=== PATIENT | male | born 1930 | race Caucasian/White ===

== ENCOUNTER 2021-05-15 12:47 | Inpatient (IN) | payer BC ==
[~2021-05-15] VITALS: Ht 172.7 cm; Wt 62.6 kg
[2021-05-15] MEDS ORDERED: HYDROMORPHONE 1 MG/1 ML DISP.SYRIN IV ONE (13:15)
[2021-05-15] MEDS ORDERED: ONDANSETRON 4 MG/2 ML VIAL IV ONE (13:15)
[2021-05-15] MEDS ORDERED: IV NORMAL SALINE 1000 ML BAG IV ONE (13:15)
[2021-05-15] MEDS ORDERED: ONDANSETRON 4 MG/2 ML VIAL ONE (13:34)
[2021-05-15] MEDS ORDERED: HYDROMORPHONE 1 MG/1 ML DISP.SYRIN ONE (13:34)
[2021-05-15 13:42] LABS: CREATININE 0.7 mg/dL (0.6-1.3)
[2021-05-15 13:54] LABS: BILIRUBIN,DIRECT 0.2 mg/dL (0.0-0.2); BILIRUBIN,TOTAL 0.7 mg/dL (0.2-1.0); TOTAL PROTEIN, SERUM 7.6 g/dL (6.4-8.2)
[2021-05-15 13:58] LABS: HEMATOCRIT 38.5 % (36.7-47.1); MEAN CORPUSCULAR HEMOGLOBIN 29.1 uug (23.8-33.4); MEAN CORPUSCULAR VOLUME 86.2 fL (73.0-96.2); PLATELET COUNT (AUTO) 225 K/uL (152-348)
--- NOTE | 2021-05-15 15:11 | NUR ---
brought down for CT via [place] accompanied by tech. garcía, ASLEEP but rousable
--- NOTE | 2021-05-15 17:34 | NUR ---
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
--- NOTE | 2021-05-15 18:56 | NUR ---
pending COVID results pending insurance clearance for admission pending bed availability
--- NOTE | 2021-05-15 19:25 | NUR ---
Recieved thorough report from [facility] using SBAR method. Pt is stable, VSS, PE WNL. HR:98, SaO2:96%RA. A.fib (controled) on bedside monitor with occ PVCs. Pt denies any pain, sob, dizziness, n/v. No s/sx of distress noted. Nothing pending except covid results, insurance eligability, and then finally admission and room assignment. Will try to expodite as much as possible to transfer pt upstairs.
--- NOTE | 2021-05-15 20:20 | NUR ---
There is some confusion regarding pt dx. 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 He has made comments that seems to suggest that we are still ruling out CA, but that it is still undetermined if it is indeed CA or not. Pt states that no MD has spoken with him regarding any findings. So either I recieved a dx in error or the PMD, the Onco and the EDMD have failed to follow up and inform the pt exactly why he is being admitted.
--- NOTE | 2021-05-16 02:51 | NUR ---
Called [facility] to page Nidhi Motley NP.
--- NOTE | 2021-05-16 03:15 | NUR ---
Dr. Isabel on panel call with Nidhi Motley NP.
--- NOTE | 2021-05-16 04:14 | NUR ---
In with pt, checked VS, assessed pt, premedicated for pain 7/10 in the neck, then provided pericare and changed diaper, gown and linens. Pt is clean and dry and placed in pos of comfort. All needs met. Pt AAOx4.
[2021-05-16] MEDS ORDERED: HYDROMORPHONE 1 MG/1 ML DISP.SYRIN IV ONE (04:15)
[2021-05-16] MEDS ORDERED: ONDANSETRON 4 MG/2 ML VIAL IV ONE (04:15)
[2021-05-16] MEDS ORDERED: HYDROMORPHONE 1 MG/1 ML DISP.SYRIN ONE ×2 (04:28→14:03)
[2021-05-16] MEDS ORDERED: ONDANSETRON 4 MG/2 ML VIAL ONE (04:29)
--- NOTE | 2021-05-16 05:00 | NUR ---
Pt given two cups of OJ per pt request. Pt clean and dry and in pos of comfort. It was at this time that I initiated End-of-life decision-making process where we discussed several possible outcomes and courses of action for him to take regarding determining appropriate code status for his guarded prognosis. I suggested that it would behoove him and his family to really start discussing what they would like to have happen in the instance where he stops breathing or his heart stops beat. I recommended that usually the best coarse of action or plan is that which is based on consideration and compassion for all parties involved but especially the pt. It is always best to consider the most compassionate plan for people tend to get very selfish during this time and stop taking into account how an inappropriate code status can effect the whole family. He was receptive to what i was saying and was listening carefully. I gave examples of what happened with my own grandmother when some members of the family were too selfish to realize that what they wanted was essentially to prolong her suffering and misery, which wrong for obvious reasons. I acknowledged that this is very difficulty but it is something that if crucially important for him and his loved ones to get very clear now when he still can and not wait until it is too late.
[2021-05-16] MEDS ORDERED: MAGNESIUM HYDROXIDE 30 ML LIQUID UDC PO PRN (05:15)
[2021-05-16] MEDS ORDERED: Z GUARD REMEDY PASTE 57 GM TUBE TOP PRN (05:15)
[2021-05-16] MEDS ORDERED: ONDANSETRON 4 MG/2 ML VIAL IV PRN (05:15)
[2021-05-16] MEDS ORDERED: ACETAMINOPHEN 325 MG TABLET PO PRN (05:15)
--- NOTE | 2021-05-16 05:24 | NUR ---
TEXTED DR. BLACKMON FOR MRI APPROVAL/ TEXTED BUSINESS INTELLIGENCE ADMINISTRATOR MARTY THE REQUISTION , WHEN APPROVED I WILL CALL [facility] AND BUSINESS INTELLIGENCE ADMINISTRATOR
[2021-05-16 06:05] LABS: MEAN CORPUSCULAR HEMOGLOBIN 28.6 uug (23.8-33.4); MEAN CORPUSCULAR VOLUME 85.8 fL (73.0-96.2); PLATELET COUNT (AUTO) 213 K/uL (152-348)
[2021-05-16 06:14] LABS: CREATININE 0.6 mg/dL (0.6-1.3); POTASSIUM 3.6 mmol/L (3.5-5.1)
--- NOTE | 2021-05-16 07:30 | NUR ---
Pt is awake a/o x4, No c/o neck pain at this time.
[2021-05-16] MEDS ORDERED: ENOXAPARIN SODIUM 40 MG/0.4 ML DISP.SYRIN SQ ONE (08:26)
[2021-05-16] MEDS: HYDROCODONE/APAP 5-325MG TABLET PO PRN (08:45)
[2021-05-16] MEDS ORDERED: HYDROCODONE/APAP 5-325MG TABLET ONE (08:48)
[2021-05-16] MEDS ORDERED: ENOXAPARIN SODIUM 40 MG/0.4 ML DISP.SYRIN SQ SCH (09:00)
--- NOTE | 2021-05-16 09:40 | NUR ---
Dr Hermosillo at the bedside for cardio consult.
[2021-05-16] MEDS: CLOPIDOGREL 75 MG TABLET PO SCH (10:24)
[2021-05-16] MEDS ORDERED: CLOPIDOGREL 75 MG TABLET ONE (10:27)
--- NOTE | 2021-05-16 12:37 | NUR ---
Spoke to Pt and pt's regarding MRI. Pt states in 1959's he had multiple fusion surgeories and they had placed many metal wires in/around the spine. Dr camara made aware.
--- NOTE | 2021-05-16 12:40 | NUR ---
Per pt's , pt was in [facility] many times and they maybe able to tell us if pt had MRI there. Placed a call to [facility], but medical records are closed until Mon am. Pt's states she will bring info which may show if pt had previous MRIs. Dr Medina and LABORER WHARF are aware.
[2021-05-16] MEDS: HYDROMORPHONE 1 MG/1 ML DISP.SYRIN IV PRN (13:58)
[2021-05-16] MEDS ORDERED: METO25TA6 PO (16:19)
[2021-05-16] MEDS ORDERED: CLOP75TA15 PO (16:19)
[2021-05-16] MEDS ORDERED: VALS80TA2 PO (16:19)
[2021-05-16] MEDS ORDERED: APIX2.5T PO (16:19)
[2021-05-16] MEDS ORDERED: METOPROLOL TARTRATE 50 MG TABLET ONE (17:08)
[2021-05-16] MEDS: METOPROLOL TARTRATE 25 MG TABLET PO SCH (17:20)
--- NOTE | 2021-05-16 18:49 | NUR ---
Dinner tray provided and pt's help w/ feeding. Pt states his neck pain is tolorateable as long as not moving.
--- NOTE | 2021-05-16 19:20 | NUR ---
Hands off report given to Donnell LOPEZ.
--- NOTE | 2021-05-16 19:38 | NUR ---
received pt, pt's at bedside. pt calm resting at this time.
--- NOTE | 2021-05-16 20:22 | NUR ---
report given to Clair LOPEZ.
--- NOTE | 2021-05-16 20:50 | NUR ---
pt transported to m/s unit [facility] via [facility]. Cole RUTLEDGE transported pt with all belongings.
--- NOTE | 2021-05-16 20:55 | NUR ---
[place]. Alert and oriented x 4. On 2L NC saturating at 97%. No signs of acute distress. L FA IV intact. On bedrest. Able to state needs. Call lights within reach, safety measures initiated.
[2021-05-16 21:20] VITALS: BP 159/92
[2021-05-16] MEDS: APIXABAN 2.5 MG TABLET PO SCH (23:10)
[2021-05-17] MEDS: HYDROMORPHONE 1 MG/1 ML DISP.SYRIN IV PRN ×3 (03:58→20:49)
[2021-05-17 04:21] VITALS: BP 130/87
--- NOTE | 2021-05-17 06:52 | NUR ---
Slept intermittently throughout the night. On 2L NC saturating at 97%. Is anxious at times c/o neck pain. Dilaudid 1mg IVP given for pain 01/15. Effective. Compliant with medication and care. L FA saline flushed and heplock. Call lights within reach, safety measures maintained. Admission packed completed. Will endorse to am shift.
[2021-05-17 06:56] LABS: HEMATOCRIT 34.9 % (36.7-47.1); MEAN CORPUSCULAR HEMOGLOBIN 28.9 uug (23.8-33.4); MEAN CORPUSCULAR VOLUME 85.7 fL (73.0-96.2); PLATELET COUNT (AUTO) 218 K/uL (152-348)
[2021-05-17 07:10] LABS: CREATININE 0.7 mg/dL (0.6-1.3); MAGNESIUM 1.9 mg/dL (1.8-2.4); PHOSPHOROUS 3.6 mg/dL (2.5-4.9); POTASSIUM 3.8 mmol/L (3.5-5.1)
[2021-05-17] MEDS: APIXABAN 2.5 MG TABLET PO SCH ×2 (09:23→20:48)
[2021-05-17] MEDS: VALSARTAN 80 MG TABLET PO SCH (09:23)
[2021-05-17] MEDS: CLOPIDOGREL 75 MG TABLET PO SCH (09:23)
[2021-05-17] MEDS: METOPROLOL TARTRATE 25 MG TABLET PO SCH ×2 (09:24→18:44)
[2021-05-17 12:00] VITALS: BP 120/62
--- NOTE | 2021-05-17 13:00 | NUR ---
Medical Release Request was sent to [facility] and [facility] medical records. Received fax confirmation.
[2021-05-17 16:00] VITALS: BP 112/69
[2021-05-17 16:24] LABS: *BILIRUBIN,URIN NEGATIVE (NEGATIVE); *BLOOD, URINE NEGATIVE (NEGATIVE); *CLARITY,URINE CLEAR (CLEAR); *COLOR,URINE YELLOW (YELLOW); LEUKOCYTE ESTERASE ,URINE NEGATIVE (NEGATIVE); NITRITE, URINE NEGATIVE (NEGATIVE); PH,URINE 5.5 (5.0-8.0); UGLUCOSE NEGATIVE (NEGATIVE)
[2021-05-17 16:30] LABS: *KETONES,URINE TRACE (NEGATIVE)
[2021-05-17 16:31] LABS: BACTERIA,URINE NONE SEEN /HPF (NONE SEEN); MUCUS,URINE FEW /LPF (0-FEW); RBC,URINE 0-3 /HPF (0-3); SQUAMOUS EPITHELIAL CELL,UR NONE SEEN /HPF (NONE SEEN); WBC,URINE 0-3 /HPF (0-3)
[2021-05-17] MEDS ORDERED: APIXABAN 2.5 MG TABLET PO SCH (17:00)
--- NOTE | 2021-05-17 18:08 | NUR ---
Patient comfortable t/o shift. C/O pain in the neck, PRN pain medication given with stated relief. On 2L NC saturating at 97%. is at bedside. No BM during this shift. All meds given as ordered, all needs met. Safety and comfort measures maintained t/o shift.
--- NOTE | 2021-05-17 19:30 | NUR ---
Patient is alert and oriented x4, able to make needs known. on 2L/ min via NC. Denies any SOB. Left FA IV is patent and intact. Still complains of pain to neck. Patient has severe pain and tenses and grimaces from any movement. Dilaudid offered and accepted. Patient is incontinent of bladder, urinal at bedside. Safety measures initiated. Call light within reach.
[2021-05-17 20:00] VITALS: BP 124/72
[2021-05-17 22:19] LABS: LYMPHOCYTES % (MANUAL) 18 % (20-40); MONOCYTES % (MANUAL) 14 % (2-10); NEUTROPHILS % (MANUAL) 68 % (42-75)
[2021-05-18] MEDS: HYDROMORPHONE 1 MG/1 ML DISP.SYRIN IV PRN ×2 (01:50→09:05)
[2021-05-18 04:00] VITALS: BP 136/73
[2021-05-18 06:44] LABS: HEMATOCRIT 36.9 % (36.7-47.1); MEAN CORPUSCULAR HEMOGLOBIN 28.8 uug (23.8-33.4); MEAN CORPUSCULAR VOLUME 85.1 fL (73.0-96.2); PLATELET COUNT (AUTO) 229 K/uL (152-348)
--- NOTE | 2021-05-18 06:49 | NUR ---
Patient slept well. Noted to attempt to get out of bed 3 times, reoriented and toileting offered. No significant events this shift. In no respiratory distress. Safety measures continued. Call light within reach.
[2021-05-18 07:01] LABS: CREATININE 0.6 mg/dL (0.6-1.3); MAGNESIUM 1.8 mg/dL (1.8-2.4); PHOSPHOROUS 3.2 mg/dL (2.5-4.9); POTASSIUM 3.9 mmol/L (3.5-5.1)
[2021-05-18 07:02] LABS: NEUTROPHILS % (MANUAL) 0 % (42-75)
[2021-05-18] MEDS: METOPROLOL TARTRATE 25 MG TABLET PO SCH ×2 (08:36→17:22)
[2021-05-18] MEDS: VALSARTAN 80 MG TABLET PO SCH (08:36)
[2021-05-18] MEDS: APIXABAN 2.5 MG TABLET PO SCH ×2 (08:37→21:04)
[2021-05-18] MEDS: CLOPIDOGREL 75 MG TABLET PO SCH (08:38)
[2021-05-18] MEDS ORDERED: CLOPIDOGREL 75 MG TABLET PO SCH (09:00)
--- NOTE | 2021-05-18 09:05 | NUR ---
awake, alert, able to let his needs known, repositioned and c/o of neck pain-medicated with Dilaudid 1 mg iv as prn. breakfast served, 02 at 2l/nc sat at 99%, noted some cough productive of whitish phlegm , looks weak, safety measures maintained, call light within reach
--- NOTE | 2021-05-18 11:25 | NUR ---
seen by Lucas Canales, spoke to - with orders- placed on isolation
[2021-05-18 12:00] VITALS: BP 134/74
--- NOTE | 2021-05-18 12:30 | NUR ---
swabs for rapid flu, pcr and rapid test for covid done and sent to lab, on droplet isolation till results in
--- NOTE | 2021-05-18 14:03 | NUR ---
lab called with positive covid antigen- relayed results to Jerilyn Canales NP
[2021-05-18 16:00] VITALS: BP 143/76
[2021-05-18] MEDS: DEXAMETHASONE SOD PHOSPHATE 4 MG INJ IV SCH (19:21)
--- NOTE | 2021-05-18 19:30 | NUR ---
report given to next shift-no distress noted, all needs attended and met, call light within reach
[2021-05-18 20:00] VITALS: BP 115/84
--- NOTE | 2021-05-18 22:00 | NUR ---
Pt had fever 102.8F tylenol given and cooling measures done; referred to DR Espinal with orders for clinda and zithromycin and xray in AM; pt is afebrile at this time at 99F;
[2021-05-18] MEDS ORDERED: AZITHROMYCIN 500MG/ D5W 250ML IVPB **ER PYXIS ONLY IV ONE (23:28)
[2021-05-18] MEDS ORDERED: CEFTRIAXONE /D5W 50ML IVPB **ER PYXIS IV ONE (23:29)
[2021-05-18] MEDS: CEFTRIAXONE 1 G in IV DEXTROSE 5% 50 ML IV SCH (23:38)
[2021-05-19] MEDS: AZITHROMYCIN IV 500 MG in IV DEXTROSE 5% 250 ML IV SCH (00:45)
[2021-05-19 04:00] VITALS: BP 130/56
[2021-05-19] MEDS: HYDROCODONE/APAP 5-325MG TABLET PO PRN ×2 (06:46→12:51)
[2021-05-19 06:50] LABS: HEMATOCRIT 36.8 % (36.7-47.1); MEAN CORPUSCULAR HEMOGLOBIN 28.3 uug (23.8-33.4); PLATELET COUNT (AUTO) 208 K/uL (152-348)
[2021-05-19 07:11] LABS: CREATININE 0.7 mg/dL (0.6-1.3); MAGNESIUM 1.8 mg/dL (1.8-2.4); POTASSIUM 3.6 mmol/L (3.5-5.1)
[2021-05-19] MEDS: DEXAMETHASONE SOD PHOSPHATE 4 MG INJ IV SCH (08:10)
[2021-05-19] MEDS: CLOPIDOGREL 75 MG TABLET PO SCH (08:12)
[2021-05-19] MEDS: APIXABAN 2.5 MG TABLET PO SCH ×2 (08:12→21:28)
[2021-05-19] MEDS: METOPROLOL TARTRATE 25 MG TABLET PO SCH ×2 (08:22→17:45)
[2021-05-19] MEDS: VALSARTAN 80 MG TABLET PO SCH (08:23)
--- NOTE | 2021-05-19 08:46 | NUR ---
morning b/p medication held bp: 95/54
[2021-05-19 12:00] VITALS: BP 103/65
--- NOTE | 2021-05-19 14:20 | NUR ---
PATIENT WAS TAKEN TO MRI OF C-SPINE, PICKED UP MY AMBULANCE AT 1420.
[2021-05-19] MEDS ORDERED: GADOTERATE MEGLUMINE 10 MMOL/20 ML VIAL IV ONE (16:32)
--- NOTE | 2021-05-19 17:12 | NUR ---
PATIENT RETURNED FROM MRI IN STABLE CONDITION. V/S WNL. PATIENT RETURNED TO [facility] ISOLATION ROOM, ALL PRECAUTIONS TAKEN BY STAFF.
[2021-05-19] MEDS ORDERED: IPRATROPIUM/ALBUTEROL SULFATE 14.7 GM INHALER INH PRN (17:45)
--- NOTE | 2021-05-19 19:10 | NUR ---
Received patient lying in bed. AAOX4. Able to make needs known. IV on L AC patent and intact. On 2L O2 via NC saturating at 94%. Patient denies SOB, chest pain or dizziness. Safety measures initiated. Bed in locked, call light button and frequently used items within reach. Will continue to monitor.
[2021-05-19 20:00] VITALS: BP 101/59
[2021-05-19] MEDS ORDERED: REMDESIVIR (CHARGED) 200 MG in IV NORMAL SALINE 210 ML IV ONE (20:00)
[2021-05-20] VITALS: BP 119/77
[2021-05-20] MEDS: CEFTRIAXONE 1 G in IV DEXTROSE 5% 50 ML IV SCH ×2 (00:17→22:28)
[2021-05-20] MEDS: HYDROCODONE/APAP 5-325MG TABLET PO PRN (01:03)
[2021-05-20] MEDS: AZITHROMYCIN IV 500 MG in IV DEXTROSE 5% 250 ML IV SCH (01:11)
--- NOTE | 2021-05-20 01:30 | NUR ---
Patient complained of having chest tightness, advised patient it's common S/E of remdesivir. Advised patient to do deep breathing to reduce pain, however, he claims that pain was persistent. Gave pt, Dione, as ordered. Pt tolerated medication well. Will continue to monitor.
[2021-05-20 05:35] VITALS: BP 116/76
--- NOTE | 2021-05-20 06:15 | NUR ---
Patient slept intermittently through the night. Patient denies SOB, chest pain or dizziness at this time. On 2L O2 via NC, saturating at. IV on L FA and R FA both intact and patent. Compliant with medications given. All needs attended to and met. Safety precautions maintained. Will endorse to day shift. Addendum: 05/20/21 at 0616 by ALEXSANDER HILLIARD RN Patient on 2L O2 saturating at 94%.
[2021-05-20 06:43] LABS: HEMATOCRIT 36.5 % (36.7-47.1); MEAN CORPUSCULAR HEMOGLOBIN 28.3 uug (23.8-33.4); MEAN CORPUSCULAR VOLUME 84.4 fL (73.0-96.2); PLATELET COUNT (AUTO) 204 K/uL (152-348)
[2021-05-20 07:05] LABS: BILIRUBIN,DIRECT 0.2 mg/dL (0.0-0.2); BILIRUBIN,TOTAL 0.3 mg/dL (0.2-1.0); CREATININE 0.8 mg/dL (0.6-1.3); POTASSIUM 3.8 mmol/L (3.5-5.1); TOTAL PROTEIN, SERUM 6.7 g/dL (6.4-8.2)
[2021-05-20 09:00] VITALS: BP 104/65
[2021-05-20] MEDS: METOPROLOL TARTRATE 25 MG TABLET PO SCH ×2 (09:00→17:40)
[2021-05-20] MEDS: DEXAMETHASONE SOD PHOSPHATE 4 MG INJ IV SCH (10:24)
[2021-05-20] MEDS: APIXABAN 2.5 MG TABLET PO SCH ×2 (10:24→21:18)
[2021-05-20] MEDS: CLOPIDOGREL 75 MG TABLET PO SCH (10:25)
[2021-05-20] MEDS: HYDROMORPHONE 1 MG/1 ML DISP.SYRIN IV PRN ×4 (11:05→23:38)
[2021-05-20 12:00] VITALS: BP 100/61
--- NOTE | 2021-05-20 12:52 | NUR ---
Pt is a/o x 4, saturating 96% on 2L nasal cannula. Pt complains of pain in neck, administered PRN medication. Pt tolerated physical therapy. dropped off home medication, transferred it to pharmacy for evaluation. Pt is cooperative with care and medications, comfort measures provided, call light within reach, will continue to monitor.
[2021-05-20] MEDS: ENSURE ENLIVE (VAN) 240 ML LIQUID PO SCH ×2 (13:04→17:40)
[2021-05-20] MEDS ORDERED: IV 1/2NS 1000 ML 1,000 ML IV ONE (13:15)
--- NOTE | 2021-05-20 15:05 | NUR ---
PATIENT IS SCHEDULED FOR MRI L SPINE W CONTRAST TOMORROW 05/21/2020 AT 9.30AM, NURSE KACY IS AWARE AN SHE IS ARRANGING TRANSPORTATION.
[2021-05-20 16:00] VITALS: BP 130/85
[2021-05-20] MEDS ORDERED: EVOL140P3 SQ (16:11)
[2021-05-20] MEDS ORDERED: [UNRECOGNIZED DRUG - OTHER] SQ SCH (18:00)
[2021-05-20] MEDS ORDERED: REPATHA 140 MG SQ SCH (18:00)
--- NOTE | 2021-05-20 18:51 | NUR ---
MRI of LSpine with contrast consent signed by patient. Procedure to be done tomorrow 05/21/21 at 0930, cloth picker scheduled for 08 by [facility] ambulance.
[2021-05-20 20:00] VITALS: BP 119/74
[2021-05-20] MEDS: AZITHROMYCIN 250 MG TABLET PO SCH (21:05)
[2021-05-20] MEDS: REMDESIVIR (CHARGED) 100 MG in IV NORMAL SALINE 100 ML IV SCH (21:06)
[2021-05-21] MEDS: HYDROCODONE/APAP 5-325MG TABLET PO PRN (02:28)
[2021-05-21 04:00] VITALS: BP 151/70
[2021-05-21] MEDS: HYDROMORPHONE 1 MG/1 ML DISP.SYRIN IV PRN (04:26)
--- NOTE | 2021-05-21 06:03 | NUR ---
Pt slept intermittently through the night. Denies any acute distress noted at this time. Pain managed well. Vitals stable on 2L NC tolerating well. PIVS on RFA and LAC intact. Comfort care and needs attended. Safety measures in place. Isolation precaution maintained. Will continue with the plan of geoffrey.
[2021-05-21 08:42] LABS: HEMATOCRIT 33.9 % (36.7-47.1); MEAN CORPUSCULAR HEMOGLOBIN 28.3 uug (23.8-33.4); MEAN CORPUSCULAR VOLUME 84.4 fL (73.0-96.2); PLATELET COUNT (AUTO) 189 K/uL (152-348)
[2021-05-21] MEDS: APIXABAN 2.5 MG TABLET PO SCH ×2 (08:44→21:15)
[2021-05-21] MEDS: CLOPIDOGREL 75 MG TABLET PO SCH (08:44)
[2021-05-21] MEDS: DEXAMETHASONE SOD PHOSPHATE 4 MG INJ IV SCH (08:44)
[2021-05-21] MEDS: METOPROLOL TARTRATE 25 MG TABLET PO SCH ×2 (08:57→16:35)
[2021-05-21] MEDS: ENSURE ENLIVE (VAN) 240 ML LIQUID PO SCH ×3 (08:58→16:35)
--- NOTE | 2021-05-21 09:00 | NUR ---
Patient picked up ambulance for MRI of Lumbar spine with & without contrast, transferred via gurney. He is alert, oriented x 4, not in any form of distress, on 2LPM oxygen via NC. He denies any pain or discomfort at this time. Vital signs stable.
[2021-05-21 09:16] LABS: BILIRUBIN,DIRECT 0.1 mg/dL (0.0-0.2); BILIRUBIN,TOTAL 0.2 mg/dL (0.2-1.0); CREATININE 0.7 mg/dL (0.6-1.3); MAGNESIUM 2.2 mg/dL (1.8-2.4); TOTAL PROTEIN, SERUM 6.5 g/dL (6.4-8.2)
--- NOTE | 2021-05-21 10:45 | NUR ---
Patient back from MRI. He remains alert, oriented x 4,on oxygen 2LPM via NC. No complain of any pain or discomfort.
[2021-05-21 11:56] VITALS: BP 115/66
[2021-05-21 15:56] VITALS: BP 122/69
--- NOTE | 2021-05-21 16:00 | NUR ---
Noted that patient took off his oxygen with no complain of dyspnea. Assisted patient to the bathroom with walker on room air. He denies any discomfort. Checked O2 sat 95% on room air.
[2021-05-21 20:53] VITALS: BP 102/75
--- NOTE | 2021-05-21 21:00 | NUR ---
PATIENT ALERT BUT FORGETFUL, NO SOB NO CHEST PAIN, PATIENT REPORTED THAT HE HAS PROBLEM WITH CONSTIPATION, AND WANTED MORE LAXATIVE TO PREVENT CONSTIPATION, PATIENT WAS GIVEN MOM BY AM RN, EXPLAINED TO PATIENT THAT WE NEED TO WAIT IN MORNING CAUSE MOM WORKS OVERNIGHT, AND HE AT RISK FOR DIARRHEA IF WANTED MORE LAXATIVE AND ACCORDING TO REPORT PATIENT HAD 2 BOWEL MOVEMENT PREVIOUS DAYS. PATIENT ABLE TO FOLLOW, ASSIST WITH TOILETING, PATIENT ON DROPLET PRECAUTION FOR COVID DIAGNOSIS, PATIENT HAS NO COUGH, NO FEVER, ON ROOM AIR, CONT TO MONITOR.
[2021-05-21] MEDS: REMDESIVIR (CHARGED) 100 MG in IV NORMAL SALINE 100 ML IV SCH (21:11)
[2021-05-21] MEDS: AZITHROMYCIN 250 MG TABLET PO SCH (21:14)
[2021-05-21] MEDS: CEFTRIAXONE 1 G in IV DEXTROSE 5% 50 ML IV SCH (22:03)
[2021-05-22 04:42] VITALS: BP 117/76
--- NOTE | 2021-05-22 07:00 | NUR ---
PATIENT SLEPT MOST OF THE NIGHT, ALERT BUT FORGETFUL, GET OUT OF BED WITHOUT ASKING FOR HELP. BED ALARM IS PUT ON, REMAIN ON DROPLET PRECAUTION, NO FEVER NO COUGH, CONT TO MONITOR.
[2021-05-22 07:23] LABS: HEMATOCRIT 37.6 % (36.7-47.1); MEAN CORPUSCULAR HEMOGLOBIN 28.4 uug (23.8-33.4); MEAN CORPUSCULAR VOLUME 84.9 fL (73.0-96.2); PLATELET COUNT (AUTO) 225 K/uL (152-348)
[2021-05-22 07:51] LABS: MAGNESIUM 2.2 mg/dL (1.8-2.4)
[2021-05-22 08:14] LABS: BILIRUBIN,DIRECT 0.2 mg/dL (0.0-0.2); BILIRUBIN,TOTAL 0.2 mg/dL (0.2-1.0); CREATININE 0.8 mg/dL (0.6-1.3); POTASSIUM 4.5 mmol/L (3.5-5.1); TOTAL PROTEIN, SERUM 7.1 g/dL (6.4-8.2)
[2021-05-22] MEDS: METOPROLOL TARTRATE 25 MG TABLET PO SCH ×2 (10:15→17:21)
[2021-05-22] MEDS: ENSURE ENLIVE (VAN) 240 ML LIQUID PO SCH ×3 (10:16→17:22)
[2021-05-22] MEDS: DEXAMETHASONE SOD PHOSPHATE 4 MG INJ IV SCH (10:16)
[2021-05-22] MEDS: CLOPIDOGREL 75 MG TABLET PO SCH (10:18)
[2021-05-22] MEDS: APIXABAN 2.5 MG TABLET PO SCH ×2 (10:19→20:35)
[2021-05-22 12:07] VITALS: BP 142/86
[2021-05-22] MEDS ORDERED: MAGNESIUM CITRATE 296 ML BOTTLE PO ONE (13:00)
[2021-05-22 16:42] VITALS: BP 139/79
[2021-05-22] MEDS: REMDESIVIR (CHARGED) 100 MG in IV NORMAL SALINE 100 ML IV SCH (20:23)
[2021-05-22] MEDS: AZITHROMYCIN 250 MG TABLET PO SCH (20:35)
[2021-05-22 21:30] VITALS: BP 144/79
[2021-05-22] MEDS: CEFTRIAXONE 1 G in IV DEXTROSE 5% 50 ML IV SCH (22:52)
[2021-05-23 04:16] VITALS: BP 113/71
[2021-05-23 07:54] LABS: HEMATOCRIT 32.7 % (36.7-47.1); MEAN CORPUSCULAR HEMOGLOBIN 28.8 uug (23.8-33.4); MEAN CORPUSCULAR VOLUME 84.1 fL (73.0-96.2); PLATELET COUNT (AUTO) 227 K/uL (152-348)
[2021-05-23 07:55] LABS: BILIRUBIN,DIRECT 0.2 mg/dL (0.0-0.2); BILIRUBIN,TOTAL 0.2 mg/dL (0.2-1.0); CREATININE 0.7 mg/dL (0.6-1.3); PHOSPHOROUS 2.6 mg/dL (2.5-4.9); POTASSIUM 3.7 mmol/L (3.5-5.1); TOTAL PROTEIN, SERUM 6.2 g/dL (6.4-8.2)
[2021-05-23] MEDS: DEXAMETHASONE SOD PHOSPHATE 4 MG INJ IV SCH (08:35)
[2021-05-23] MEDS: METOPROLOL TARTRATE 25 MG TABLET PO SCH (08:36)
[2021-05-23] MEDS: ENSURE ENLIVE (VAN) 240 ML LIQUID PO SCH ×2 (08:36→12:42)
[2021-05-23] MEDS: APIXABAN 2.5 MG TABLET PO SCH (08:37)
[2021-05-23] MEDS: CLOPIDOGREL 75 MG TABLET PO SCH (08:37)
[2021-05-23] MEDS ORDERED: GUAI237L83 PO (12:20)
[2021-05-23] MEDS ORDERED: HYDR-3972 PO (12:20)
[2021-05-23] MEDS ORDERED: ONDA4TAB11 PO (12:20)
[2021-05-23] MEDS ORDERED: LEVO750T46 PO (12:20)
[2021-05-23 12:35] VITALS: BP 119/70
--- NOTE | 2021-05-23 15:00 | NUR ---
discharged patient with stable condition. no distress identified. VS WNL. dc instruction and covid dc instruction given and signed. belonging list signed. no pain identified. left with the . skin intact no open wound. photo taken in chart.
[2021-05-25 14:06] LABS: CRYPTOCOCCUS AB, SERUM Negative (Negative)
[2021-06-01 18:06] LABS: COCCIDIOIDES CF SERUM Negative (Neg:<1:2)
== END 2021-05-23 15:00 | disposition home health service (06) | DRG 551 ==
LOC: ER 12:54 → TRANSITION 05-16 05:09 → UNDOADMIN 05-16 08:59 → MEDSURG3 05-16 20:39 → TRANSITION 05-16 20:39 → MEDSURG3 05-16 20:40
PROVIDERS: ADMIT Registered Nurse; ATTEND Nurse Practitioner Family
DX: M50.30 Other cervical disc degeneration, unspecified cervical region (principal); U07.1 COVID-19; J96.01 Acute respiratory failure with hypoxia; J15.9 Unspecified bacterial pneumonia; M54.2 Cervicalgia; I48.0 Paroxysmal atrial fibrillation; R77.8 Other specified abnormalities of plasma proteins; I25.2 Old myocardial infarction; Z95.1 Presence of aortocoronary bypass graft; J20.8 Acute bronchitis due to other specified organisms; D64.9 Anemia, unspecified; E11.9 Type 2 diabetes mellitus without complications; E78.5 Hyperlipidemia, unspecified; G89.29 Other chronic pain; Z79.01 Long term (current) use of anticoagulants; Z88.5 Allergy status to narcotic agent; I25.10 Atherosclerotic heart disease of native coronary artery without angina pectoris; Z85.028 Personal history of other malignant neoplasm of stomach; Z85.828 Personal history of other malignant neoplasm of skin; Z87.891 Personal history of nicotine dependence; Z98.1 Arthrodesis status; N40.0 Benign prostatic hyperplasia without lower urinary tract symptoms; N28.1 Cyst of kidney, acquired; Z95.5 Presence of coronary angioplasty implant and graft; M48.02 Spinal stenosis, cervical region; M51.36 Other intervertebral disc degeneration, lumbar region; M48.061 Spinal stenosis, lumbar region without neurogenic claudication; I10 Essential (primary) hypertension; J45.909 Unspecified asthma, uncomplicated
CPT/HCPCS: 36415; 70030-TC; 71045; 72125; 72148; 72158; 83615; 83735; 84100; 85025; 85610; 85651; 85730; 86140; 86850; 86900; 86901; 87040; 87070; 87328; 87400; 93005; 93307; 97161; A4663; A9575; G0378; J0456; J0696; J1100; J1170; J1650; J2405; J3490; J7030; J7050; J7060; Q0144; U0003